=== PATIENT | male | born 1965 | race Caucasian/White ===

== ENCOUNTER → 2018-04-27 10:54 | Outpatient (CLI) | payer BC, SELFPAY ==
--- NOTE | 2018-04-27 10:55 | XR_ITS ---
XR elbow RT 2V HISTORY: Posttraumatic pain. Abnormal pain and swelling ITS.REASON: RIGHT ELBOW INJURY ORDERING PHYSICIAN: Sommer Parsons MD PATIENT AGE: 52 years COMPARISON: None FINDINGS: 2 views are obtained. A tiny calcific density is present along the medial epicondyle could be due to an old avulsion injury. No loose body is present in the anterior aspect of the elbow joint measuring 7 mm. There are minimal osteoarthritic changes of the elbow joint. No acute fracture or dislocation. 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 No acute finding
== END ==
PROVIDERS: PCP Family Medicine; Visit Provider Orthopaedic Surgery
DX: S59.901A Unspecified injury of right elbow, initial encounter (principal)
CPT/HCPCS: 73070

== ENCOUNTER → 2018-05-07 08:39 | Outpatient (CLI) | payer BC, SELFPAY ==
--- NOTE | 2018-05-07 08:43 | XR_ITS ---
XR elbow RT min 3V HISTORY: Follow-up fracture ITS.REASON: Rt elbow fx ORDERING PHYSICIAN: Saroj Galloway MD PATIENT AGE: 52 years COMPARISON: 12/06 and 04/25/2018. FINDINGS: Osteoarthritic changes are once again noted with bony hypertrophic change of the distal humerus and proximal radius and ulna. There is a longitudinal lucency now evident at the radial head. While this may be due to a prominent trabecula, one cannot exclude a nondisplaced fracture. There is also a lucency noted at the bases would appear to represent an osteophyte of the distal humerus or of the coronoid process. CT of the elbow may be of further value. A loose body is once again noted in the antecubital fossa. No displaced fat IMPRESSION: 1. Osteoarthritic changes with loose body and possible fracture at the base of a osteophyte at the coronoid process 2. Longitudinal lucency at the radial head possibly due to nondisplaced fracture. 3. CT of the elbow may be of further value.
== END ==
PROVIDERS: PCP Family Medicine; Visit Provider Orthopaedic Surgery
DX: S59.901A Unspecified injury of right elbow, initial encounter (principal)
CPT/HCPCS: 73080

== ENCOUNTER → 2018-05-29 07:42 | Outpatient (CLI) | payer BC, SELFPAY ==
--- NOTE | 2018-05-29 07:45 | MR_ITS ---
MR elbow RT wo con CLINICAL INDICATION: Elbow pain with limited range of motion following injury ITS.REASON: Rt elbow pain ORDERING PHYSICIAN: Sommer Parsons MD PATIENT AGE: 52 years Comparison: 04/25/2018 TECHNIQUE: Routine multiplanar multiecho sequences are performed without contrast. FINDINGS: There is generalized motion artifact which does obscure fine detail. There is a small elbow joint effusion. No abnormal bone marrow signal intensity evident that would indicate a fracture or bone bruise. There are osteoarthritic changes with bony spurs of the radial head, distal humerus, and olecranon. Ligamentous detail is obscured due to motion artifact. No osteochondral lesions. The ulnar collateral ligament appears grossly intact. On the radiograph there was a small calcific density adjacent to the medial epicondyles. This likely represents an old injury as no bone marrow edema is evident at this region. The lateral ligamentous complex is less well delineated. There is thickening of the lateral collateral ligament with slight increased T2 signal. The lateral ulnar collateral ligament not well delineated as well but could be related to the motion artifact. There is thickening of the common extensor tendon with slight increased T2 signal consistent with lateral epicondylitis. Motion artifact obscures the origin of the common flexor tendon but is grossly unremarkable. The biceps tendon appears intact. There is some increased T2 signal involving the distal aspect of the biceps tendon at the insertion on the radial tuberosity suggesting tendinopathy/tendinosis. IMPRESSION: 1. Limited study secondary to motion artifact. 2. Osteoarthritic changes with elbow joint effusion. 3. Suspect lateral epicondylitis. There is some thickening also of the lateral collateral ligament which could be due to strain or partial tear versus artifact from the motion. 4. Tendinopathy/tendinosis of the distal aspect of the biceps tendon
== END ==
PROVIDERS: PCP Family Medicine; Visit Provider Orthopaedic Surgery
DX: S59.901A Unspecified injury of right elbow, initial encounter (principal)
CPT/HCPCS: 73221

== ENCOUNTER 2018-06-07 08:00 | Outpatient (RCR) | payer BC, SELFPAY ==
--- NOTE | 2018-05-09 10:02 | HMH.OTOPEV ---
OT Inpatient Evaluation Rehab OT Outpatient Eval Start: 05/09/18 08:54 Freq: Status: Active Protocol: Document 05/09/18 08:54 RM[facility]ALL (Rec[facility] 05[facility]09[facility]18 09[id number] Electronically Signed By Alejandra Palacio OT 05/09/18 08:54 Outpatient Therapy Subjective History Subjective History Pt is a 52 year old male who reports to therapy for initial evaluation to right elbow. Pt slipped and fell on a rock, landing on the right elbow. This accident happened on 04/25 and he has been in a half cast up until 05/07/18. Pt has broken then same elbow twice; once when he was 15 and another in 2000. He did not require surgery with either of the past fractures. Pt does demonstrate with decreased AROM at right elbow. 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 Pt will continue to be seen in order to address all deficits. Chief Complaint Pain Stiff Decreased Klystrom Tube Tester Strength Symptom Type Ache Throb Sharp Dull Stabbing Symptoms Relieved By Nothing Symptoms Aggravated By Physical Activity Twisting Lifting Prior Functional Limitations None Current Functional Limitations Reaching Lifting Housework Driving Sleeping Recreation Activity Symptom Description Constant but Variable Level of pain today (0-10) 4 Pain scale - at its best (0-10) 4 Pain scale - at its worst (0-10) 9 Shoulder/Elbow Eval Shoulder Objective Measurements Elbow Objective Measurements Elbow ROM Right full ROM elbow exam standard left decreased ROM elbow exam standard right pain with active ROM elbow exam standard right pain with passive ROM elbow exam right standard Elbow Extension Active Range of Motion ( 0-28 degrees degrees) Elbow Flexion Active Range of Motion ( 110 degrees
== END 2018-06-07 08:05 | disposition hospice, home (50) ==
LOC: OT 08:00
PROVIDERS: Visit Provider Orthopaedic Surgery
DX: S59.901A Unspecified injury of right elbow, initial encounter (principal)
CPT/HCPCS: 97014; 97035; 97140; 97166; G0283

== ENCOUNTER → 2020-03-25 07:13 | Outpatient (CLI) | payer OTHER, SELFPAY ==
--- NOTE | 2020-03-25 | CA_ITS ---
APPROVED REPORT Exam: Exercise Treadmill Technologist: Judith Gallardo Ht: 5 ft 7 in Wt: 167 lbs BSA: 1.87 m2 HR: 74 bpm BP: 126/84 mmHg Indications: Shortness of Breath Medical History Medications: Aspirin,,,,, Stress Test Details Test: Manual Treadmill HR Resting HR: 88 bpm Max Heart Rate (APMHR): 168 bpm Max HR Achieved: 145 bpm Target HR (85% APMHR): 142 bpm % of APMHR: 86 Recovery HR: 88 bpm BP Resting BP: 126.0/84.0 mmHg Max BP: 150.0/80.0 mmHg Recovery BP: 129.0/87.0 mmHg ECG Clinical Exercise duration: 10:00 min Highest Stage Achieved: Exercise capacity: 10.1 METs Stress ECG Conclusion Resting EKG: Normal sinus rhythm Patient exercised 10:00 on Renan Protocol. Test stopped due to shortness of air, fatigue. Symptoms: No chest pain Arrhythmias/Ectopy: None ST-T Changes: T wave inversion in lead III. Otherwise normal ST-T response to exercise. Conclusion: Probably normal GXT. [employer] images reported separately. Electronically signed by : Fuentes Devine, 03/26/2020 13:58:11
--- NOTE | 2020-03-25 07:13 | NM_ITS ---
APPROVED REPORT Exam: Nuclear Stress Test Indication: fatigue..numbness in both hands Patient Location: Outpatient Stress Tech: Judith Gallardo [place] Tech:Ro LombardoSESAR RT(R)(N) Ht: 5 ft 7 in Wt: 165 lbs HR: 74 bpm BP: 126/84 mmHg BSA: 1.86 m2 BMI: 25.8 History: fatigue..numbness in both hands Procedure: Patient exercised on Renan protocol 10 minutes and sec, resting heart rate 74 bpm, resting blood pressure 126/84 mmHg, with exercise maximum heart rate achived was 144 bpm which is 86 % of the maximum predicted heart rate and blood pressure was 150/80 mmHg. Patient denied any complaint of chest pain. Patient has Good exercise capacity, achieved 10.0 METs of workload on treadmill, the blood pressure response to exercise was Adequate. Electrocardiogram Resting electrocardiogram showed sinus rhythm, with exercise there is less than 1.[address] segment depression noted from the baseline EKG. The EKG portion of the exercise Myoview is negative for ischemia. Cardiac Stress and Resting SPECT Images: Cardiac Stress and Resting SPECT images were obtained using technetium 99m Myoview 32.7 mCi stress and 10.29 mCi at rest. Gated SPECT for analysis of segmental wall motion and calculation of the ejection fraction also done. Prone images were also obtained. Cardiac stress and resting SPECT images show uniform myocardial activity without segmental perfusion abnormality, computer derived ejection fraction is 42%, however visually estimated ejection fraction is approximately 50%. There is no regional wall motion abnormality, right ventricle is normal size and contractility. Conclusion: 1. The EKG portion of the exercise Myoview is negative for ischemia, patient has good exercise capacity achieved 10 mets of workload on treadmill, the blood pressure response to exercise was adequate, there was no exercise-induced chest discomfort. 2. No scintigraphic evidence of reversible ischemia seen at this level of exercise, computer derived ejection fraction is 42% however visually estimated ejection fraction is approximately 50%. There is no regional wall motion abnormality, right ventricle is normal size and contractility. 3. Likely normal exercise Myoview study. Electronically signed by : Fuentes Devine, 03/26/2020 14:09:10
--- NOTE | 2020-03-25 07:48 | CA_ITS ---
APPROVED REPORT EXAM: Comprehensive 2D, Doppler, and color-flow Echocardiogram Child Psychiatrist: Britni Brooke RVT Ht: 5 ft 7 in Wt: 167lbs BSA: 1.87 BP: 132/85 mmHg Indications: SOA,RODRIGUEZ,EX SMOKER,NAOMI,FAMILY HX HEART DZ 2D Dimensions LVOT 2.18 cm (M/F) 1.5-2.5 M-Mode Dimensions RVDd 2.53 cm (0.9-2.6) LA Diam 4.17 cm (1.9-4.0) LVDd 5.37 cm (3.5-5.7) Ao Diam 3.04 cm (2.0-3.7) LVDs 3.29 cm (3.5-5.7) IVSd 0.79 cm (0.6-1.1) PWd 0.76 cm (0.6-1.1) EF (Teich) 68.60% FS 38.70% EDV (Teich) 139.50 mL ESV (Teich) 43.80 mL LV Diastology E Decel Time 280.00 (160-240 msec) E/A Ratio 0.8 MED E' 8.30 (< 7 cm/sec) E'/MED E' Ratio 7.18 (>14) LAT E' 11.00 (<10 cm/sec) E/LAT E' Ratio 5.42 (>14) Mitral Valve MV E Max Tao. 60.00 (40-130 cm/s) MV A Velocity 78.00 (40-130 cm/s) E/A Ratio 0.76 MV Decel. Time 280.00 (160-240 ms) MV PHT 82.00 ms Pulmonary Valve PV Peak Velocity 60.00 (50-150 cm/s) Tricuspid Valve TR P. Velocity 218.00 cm/s Left Ventricle Left atrium is mildly enlarged, left ventricle is normal size, mild concentric left ventricular hypertrophy, visually estimated ejection fraction 55% with no regional wall motion abnormality, grade 1 diastolic dysfunction seen without tissue Doppler evidence of raise left atrial pressure. Right Ventricle Right atrium and right ventricle are mildly enlarged with normal contractility. Aortic Valve Aortic valve is minimally thickened and fibrosed, there is no aortic stenosis or aortic insufficiency. Mitral Valve Mitral valve is grossly normal, there is mild mitral regurgitation. Tricuspid Valve Tricuspid valve grossly normal, there is mild tricuspid regurgitation, tricuspid regurgitation jet velocity is inadequate for calculation of the right ventricular systolic pressure. Pulmonic Valve Pulmonic valve is poorly visualized. Great Vessels Aortic root is normal size. Pericardium No significant pericardial effusion noted. Conclusion 1. Mild biatrial enlargement, normal left ventricular size, mild concentric left ventricular hypertrophy, visually estimated ejection fraction 55% with no regional wall motion abnormality, grade 1 diastolic dysfunction seen without tissue Doppler evidence of raise left atrial pressure. 2. Mildly enlarged right ventricle with normal contractility. 3. Mild mitral and tricuspid regurgitation. 4. No significant pericardial effusion noted. Electronically signed by : Fuentes Devine, 03/26/2020 15:05:00
--- NOTE | 2020-03-25 10:39 | HMH.ITSHM ---
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 [] asa
== END ==
PROVIDERS: PCP Family Medicine; Visit Provider Nurse Practitioner Family
DX: R06.00 Dyspnea, unspecified (principal); R53.83 Other fatigue; G47.9 Sleep disorder, unspecified; R06.83 Snoring; R40.0 Somnolence; Z82.49 Family history of ischemic heart disease and other diseases of the circulatory system; Z87.891 Personal history of nicotine dependence
CPT/HCPCS: 78452; 93017; 93306; A9502